=== PATIENT | female | born 1980 | race Caucasian/White ===

== ENCOUNTER 2024-04-21 14:02 | Outpatient (CLI) | payer BC | END 2024-04-21 14:03 | disposition home or self-care (01) | LOC: CSHULT 14:02 | PROVIDERS: ATTEND Urology | DX: N20.2 Calculus of kidney with calculus of ureter (principal); Z98.890 Other specified postprocedural states; R35.0 Frequency of micturition | CPT/HCPCS: 74018; 76770 ==

== ENCOUNTER 2024-10-21 12:54 | Outpatient (CLI) | payer BC | END 2024-10-21 12:55 | disposition home or self-care (01) | LOC: CSHRAD 12:54 | PROVIDERS: ATTEND Urology | DX: N20.0 Calculus of kidney (principal); Z98.890 Other specified postprocedural states; R35.0 Frequency of micturition | CPT/HCPCS: 74018; 76770 ==

== ENCOUNTER 2024-10-25 17:30 | Outpatient (CLI) | payer BC | END 2024-10-25 17:31 | disposition home or self-care (01) | LOC: CSHSLEEP 17:30 | PROVIDERS: ATTEND Family Medicine | DX: G47.10 Hypersomnia, unspecified (principal); R53.83 Other fatigue; E66.9 Obesity, unspecified; Z68.26 Body mass index [BMI] 26.0-26.9, adult; R06.83 Snoring; G47.00 Insomnia, unspecified; I10 Essential (primary) hypertension; G47.33 Obstructive sleep apnea (adult) (pediatric) | CPT/HCPCS: 95800 ==